=== PATIENT | female | born 2000 | race African-American/Black ===

== ENCOUNTER 2021-06-25 12:54 | Inpatient (IN) | payer SELFPAY ==
[~2021-06-25] VITALS: Ht 172.7 cm; Wt 84.4 kg
[2021-06-25] MEDS ORDERED: ACETAMINOPHEN 325MG TABLET PO STA (17:16)
[2021-06-25] MEDS ORDERED: CEFTRIAXONE SODIUM 500 MG/VIAL IM ONE (17:30)
[2021-06-25] MEDS ORDERED: DOXYCYCLINE HYCLATE 100MG CAPSULE PO ONE (17:30)
[2021-06-25 17:49] LABS: CLARITY URINE TURBID (CLEAR); COLOR URINE YELLOW (YELLOW); KETONES URINE TRACE (NEGATIVE); LEUKOCYTE ESTERASE URINE 3+ (NEGATIVE); NITRITE URINE POSITIVE (NEGATIVE); OCCULT BLOOD URINE 3+ (NEGATIVE); PROTEIN URINE 1+ (NEGATIVE); SPECIFIC GRAVITY URINE 1.013 (1.005-1.030)
[2021-06-25 18:27] LABS: HEMATOCRIT. 33.5 % (36.0-48.0); HEMOGLOBIN. 11.1 g/dL (12.0-16.0); MEAN CORPUSCULAR HEMOGLOBIN 26.2 pg (28.0-32.0); MEAN CORPUSCULAR VOLUME 79.2 fL (81.0-99.0); MEAN PLATELET VOLUME 8.3 fl (7.4-10.4); PLATELET 475 x1000/uL (130-400); RED BLOOD CELL COUNT 4.23 mill/uL (4.2-5.4); RED CELL DISTRIBUTION WIDTH 13.7 % (11.6-14.6)
[2021-06-25 18:33] LABS: CHLORIDE 99 mEq/L (98-107)
[2021-06-25] MEDS ORDERED: SODIUM CHLORIDE 0.9% 1000ML BAG (SEPSIS BOLUS) IV ONE (19:15)
[2021-06-25] MEDS ORDERED: CEFTRIAXONE 1 G PREMIX 50 ML IV ONE (19:15)
[2021-06-25 19:48] LABS: CHLORIDE 101 mEq/L (98-107)
[2021-06-25 21:52] LABS: PLATELET ESTIMATE INCREASED
[2021-06-26] VITALS: BP 120/65
[2021-06-26] MEDS ORDERED: ONDANSETRON HCL 4MG/2ML INJ IV PRN (02:00)
[2021-06-26] MEDS ORDERED: IBUPROFEN 800MG TABLET PO PRN (02:00)
[2021-06-26] MEDS: LACTATED RINGERS 1,000 ML IV SCH ×3 (02:04→18:00)
[2021-06-26] MEDS: HYDROCODONE/ACETAMINOPHEN 5/325MG TABLET PO PRN ×3 (02:04→18:15)
[2021-06-26] MEDS: GENTAMICIN 80MG PREMIX 100 ML IV SCH ×3 (02:30→18:15)
[2021-06-26] MEDS ORDERED: POTASSIUM CHLORIDE INJ 40 MEQ in DEXT 5% WATER 500 ML IV SCH (03:00)
[2021-06-26] MEDS: AMPICILLIN 1,000 MG in SODIUM CHLORIDE 0.9% 50 ML IV SCH ×3 (03:05→17:05)
[2021-06-26 04:00] VITALS: BP 104/60
[2021-06-26] MEDS: CLINDAMYCIN 900 MG PREMIX 50 ML IV SCH ×3 (05:19→22:33)
[2021-06-26 08:00] VITALS: BP 108/66
[2021-06-26] MEDS ORDERED: CEPH500T MT (08:46)
[2021-06-26 09:09] LABS: UCG SCREEN NEGATIVE
[2021-06-26 12:00] VITALS: BP 118/61
[2021-06-26 16:00] VITALS: BP 121/67
[2021-06-26 17:50] LABS: HEMATOCRIT 28.4 % (36.0-48.0); HEMOGLOBIN 9.2 g/dL (12.0-16.0); MEAN CORPUSCULAR HEMOGLOBIN 25.8 pg (28.0-32.0); MEAN CORPUSCULAR VOLUME 79.3 fL (81.0-99.0); PLATELET 423 x1000/uL (130-400); RED BLOOD CELL COUNT 3.58 mill/uL (4.2-5.4); RED CELL DISTRIBUTION WIDTH 13.5 % (11.6-14.6)
[2021-06-26 20:00] VITALS: BP 113/61
[2021-06-27] VITALS (7 sets, daily range): BP systolic 95–113; BP diastolic 55–74
[2021-06-27] MEDS: AMPICILLIN 1,000 MG in SODIUM CHLORIDE 0.9% 50 ML IV SCH ×4 (00:12→15:14)
[2021-06-27] MEDS: HYDROCODONE/ACETAMINOPHEN 5/325MG TABLET PO PRN ×3 (01:07→11:04)
[2021-06-27] MEDS: GENTAMICIN 80MG PREMIX 100 ML IV SCH ×3 (01:08→18:00)
[2021-06-27] MEDS: LACTATED RINGERS 1,000 ML IV SCH ×3 (02:53→18:00)
[2021-06-27] MEDS: CLINDAMYCIN 900 MG PREMIX 50 ML IV SCH ×2 (04:21→12:38)
[2021-06-27 06:21] LABS: HEMATOCRIT 27.1 % (36.0-48.0); HEMOGLOBIN 8.8 g/dL (12.0-16.0); MEAN CORPUSCULAR HEMOGLOBIN 25.6 pg (28.0-32.0); MEAN CORPUSCULAR VOLUME 78.9 fL (81.0-99.0); PLATELET 398 x1000/uL (130-400); RED BLOOD CELL COUNT 3.44 mill/uL (4.2-5.4); RED CELL DISTRIBUTION WIDTH 13.7 % (11.6-14.6)
[2021-06-27] MEDS ORDERED: IOHEXOL-350 100 ML BOTTLE ONE (14:06)
[2021-06-27] MEDS ORDERED: ACET-2708 MT (18:03)
[2021-06-29 04:14] LABS: NEISSERIA GONORRHOEAE NAA Positive (Negative)
== END 2021-06-27 16:30 | disposition home or self-care (01) | DRG 531 ==
LOC: ER 12:54 → 6EST 21:59 → EDBEDREQTM 22:08 → EDBEDREQ 22:08 → EDBEDREQSVC 22:08 → ENRESERV 22:44
PROVIDERS: ADMIT Obstetrics & Gynecology; ATTEND Obstetrics & Gynecology
DX: N70.93 Salpingitis and oophoritis, unspecified (principal); D64.9 Anemia, unspecified; D72.829 Elevated white blood cell count, unspecified; E87.6 Hypokalemia; F12.90 Cannabis use, unspecified, uncomplicated; R07.9 Chest pain, unspecified
CPT/HCPCS: 36415; 71045; 71275; 76830; 76856; 80053; 81003; 81025; 83605; 84132; 85025; 85027; 87491; 87591; 93005; 99291; C1893; J0290; J0696; J1580; J3480; J3490; J7030; J7042; J7060; J7120; Q9967